=== PATIENT | male | born 1980 | race Caucasian/White ===

== ENCOUNTER 2019-03-23 05:56 | Day surgery (SDC) | payer BC ==
--- NOTE | 2019-03-23 07:07 | EDM.PDOC ---
<OfficerSylvain - Last Filed: 03/23/19 07:00> ED HPI GENERAL MEDICAL PROBLEM - General Chief Complaint: Abdominal Pain Stated Complaint: SIDE ACHE, VOMITTING, UPSET STOMACH Time Seen by Provider: 03/23/19 06:52 Source of Information: Reports: Patient, Family, RN Notes Reviewed History Limitations: Reports: No Limitations - History of Present Illness INITIAL COMMENTS - FREE TEXT/NARRATIVE: 38-year-old male presents emergency department today with complaint of abdominal pain,6 he has a known history of gallstones he had an ultrasound a couple of months ago. He is not had any problem with that until this evening. Had dinner last night about 6:00 about 8:00 started developing abdominal pain early this morning he had some nausea and vomiting the pain has persisted. Denies any fevers no shortness of breath or chest pain - Related Data Allergies Allergy/AdvReac Type Severity Reaction Status Date / Time infliximab [From Remicade] Allergy Swelling Verified 03/23/19 06:10 Home Meds: Home Meds Lisinopril 20 mg PO BID 03/23/19 [History] Ustekinumab [Stelara] 45 mg SQ ASDIRECTED 03/23/19 [History] Past Medical History HEENT History: Reports: Impaired Vision Cardiovascular History: Reports: Hypertension Musculoskeletal History: Reports: Other (See Below) Other Musculoskeletal History: psorieatic arthritis Endocrine/Metabolic History: Reports: Obesity/BMI 30+, Other (See Below) Dermatologic History: Reports: Psoriasis Social & Family History - Tobacco Use Smoking Status *Q: Never Smoker ED ROS GENERAL - Review of Systems Review Of Systems: See Below Constitutional: Denies: Fever, Chills HEENT: Reports: No Symptoms Respiratory: Reports: No Symptoms Cardiovascular: Reports: No Symptoms GI/Abdominal: Reports: Abdominal Pain, Nausea, Vomiting. Denies: Constipation, Diarrhea : Reports: No Symptoms ED EXAM, GI/ABD - Physical Exam Exam: See Below Exam Limited By: No Limitations General Appearance: Alert, Mild Distress Respiratory/Chest: No Respiratory Distress, Lungs Clear, Normal Breath Sounds, No Accessory Muscle Use, Chest Non-Tender Cardiovascular: Regular Rate, Rhythm, No Murmur GI/Abdominal Exam: Normal Bowel Sounds, Soft, No Distention, Tender (Right upper quadrant positive Lopes sign) Course - Vital Signs Last Recorded V/S: Last Vital Signs Temp 96.6 F 03/23/19 11:07 Pulse 86 03/23/19 11:07 Resp 18 03/23/19 11:07 BP 131/60 03/23/19 11:07 Pulse Ox 95 03/23/19 11:07 - Orders/Labs/Meds Orders: Active Orders 24 hr Category Date Time Status Ambulate [RC] QID Care 03/23/19 09:09 Active Dorsiflex/Plantar flex x 10 [RC] Q4HR Care 03/23/19 09:09 Active EKG Documentation Completion [RC] ASDIRECTED Care 03/23/19 08:20 Active Head of Bed Elevation [RC] ASDIRECTED Care 03/23/19 09:09 Active Intake and Output [RC] ASDIRECTED Care 03/23/19 09:09 Active Notify Provider Vital Signs [RC] ASDIRECTED Care 03/23/19 09:09 Active Peripheral IV Care [RC] . DIRECTED Care 03/23/19 06:58 Active Pneumonia Education [RC] UPON Care 03/23/19 09:09 Active RT Incentive Spirometry [RC] Q1HWA Care 03/23/19 09:09 Active Ready for Discharge [RC] PER UNIT ROUTINE Care 03/23/19 09:13 Active Turn, Cough, Deep Breathe [RC] .PRN Care 03/23/19 09:09 Active Up to Chair [RC] ASDIRECTED Care 03/23/19 09:09 Active Advance Diet Instructions [DIET] Diet 03/23/19 Lunch Active CBC WITH AUTO DIFF [HEME] Routine Lab 03/24/19 05:11 Ordered COMPREHENSIVE METABOLIC PN,CMP [CHEM] Routine Lab 03/24/19 05:11 Ordered Acetaminophen/HYDROcodone [[place] 325-5 MG] Med 03/23/19 09:09 Active 1 tab PO Q4H PRN Benzocaine/Cetylpyrd/Menthol [Cepacol Sore Throat] Med 03/23/19 09:09 Active 1 lozenge MUCMEM Q4H PRN Docusate Sodium [Colace] Med 03/23/19 09:09 Active 100 mg PO BID PRN Lactated Ringers [Ringers, Lactated] 1,000 ml Med 03/23/19 07:00 Active IV ASDIRECTED Meloxicam [Mobic] Med 03/23/19 12:00 Active 7.5 mg PO DAILY Ropivacaine [Naropin 0.5%] 60 ml Med 03/23/19 09:00 Active dexAMETHasone [Dexamethasone] 8 mg EPINEPHrine [Adrenalin] 0.4 mg Sodium Chloride 0.9% [Normal Saline] 17.6 ml NERVRT ASDIRECTED Sodium Chloride 0.9% [Saline Flush] Med 03/23/19 06:58 Active 10 ml FLUSH ASDIRECTED PRN Zolpidem [Ambien] Med 03/23/19 09:09 Active 5 mg PO BEDTIME PRN fentaNYL [Sublimaze] Med 03/23/19 09:12 Active 10 - 30 mcg IVPUSH Q1H PRN hydrOXYzine HCl [Vistaril] Med 03/23/19 09:09 Active 100 mg IM Q4H PRN hydrOXYzine HCl [Vistaril] Med 03/23/19 10:18 Active 100 mg IM Q4H PRN Abdominal Binder [OM.PC] Routine Oth 03/23/19 09:09 Ordered Convert IV to Saline Lock [OM.PC] Routine Oth 03/23/19 09:09 Ordered Peripheral IV Insertion Adult [OM.PC] Urgent Oth 03/23/19 06:58 Ordered Procedure Education [OM.PC] Routine Oth 03/23/19 09:09 Ordered Sequential Compression Device [OM.PC] Routine Oth 03/23/19 09:09 Ordered Resuscitation Status Routine Resus Stat 03/23/19 09:09 Ordered EKG 12 Lead [EK] Routine Ther 03/23/19 08:20 Ordered Medication Orders Hydrocodone Bitart/Acetaminophen ([place] 325-5 Mg) 1 tab PO Q4H PRN PRN Reason: Pain (moderate 4-6) Last Admin: 03/23/19 11:19 Dose: 1 tab Benzocaine/Menthol (Cepacol Sore Throat) 1 lozenge MUCMEM Q4H PRN PRN Reason: Sore Throat Ropivacaine 60 ml/Dexamethasone 8 mg/Epinephrine HCl 0.4 mg/ Sodium Chloride 17.6 ml 0 ml NERVRT ASDIRECTED CIPRIANO Last Admin: 03/23/19 10:04 Dose: 80 syringe Docusate Sodium (Colace) 100 mg PO BID PRN PRN Reason: Constipation Fentanyl (Sublimaze) 10 - 30 mcg IVPUSH Q1H PRN PRN Reason: Pain (severe 7-10) Hydroxyzine HCl (Vistaril) 100 mg IM Q4H PRN PRN Reason: Breakthrough Pain Last Admin: 03/23/19 10:39 Dose: 100 mg Hydroxyzine HCl (Vistaril) 100 mg IM Q4H PRN PRN Reason: Nausea Lactated Ringer's (Ringers, Lactated) 1,000 mls @ 999 mls/hr IV ASDIRECTED CIPRIANO Last Admin: 03/23/19 07:28 Dose: 999 mls/hr Meloxicam (Mobic) 7.[address] [facility] Last Admin: 03/23/19 11:20 Dose: Sodium Chloride (Saline Flush) 10 ml FLUSH ASDIRECTED PRN PRN Reason: Keep Vein Open Last Admin: 03/23/19 07:46 Dose: 10 ml Zolpidem Tartrate (Ambien) 5 mg PO BEDTIME PRN PRN Reason: Sleep Labs: Laboratory Tests 03/23/19 03/23/19 03/23/19 Range/Units 07:13 07:13 07:13 WBC 19.2 H (4.5-11.0) K/uL RBC 5.20 (4.30-5.90) M/uL Hgb 15.5 H (12.0-15.0) g/dL Hct 45.2 (40.0-54.0) % MCV 87 (80-98) fL MCH 30 (27-31) pg MCHC 34 (32-36) % Plt Count 264 (150-400) K/uL Neut % (Auto) 83 H (36-66) % Lymph % (Auto) 8 L (24-44) % Pratt % (Auto) 8 H (2-6) % Eos % (Auto) 0 L (2-4) % Baso % (Auto) 0 (0-1) % Sodium 139 L (140-148) mmol/L Potassium 4.4 (3.6-5.2) mmol/L Chloride 102 (100-108) mmol/L Carbon Dioxide 29 (21-32) mmol/L Anion Gap 12.4 (5.0-14.0) mmol/L BUN 16 (7-18) mg/dL Creatinine 1.1 (0.8-1.3) mg/dL Est Cr Clr Drug Dosing TNP Estimated GFR (MDRD) > 60 (>60) Glucose 134 H (74-106) mg/dL Lactic Acid 1.6 (0.4-2.0) mmol/L Calcium 9.4 (8.5-10.1) mg/dL Total Bilirubin 0.3 (0.2-1.0) mg/dL AST 22 (15-37) U/L ALT 51 (12-78) U/L Alkaline Phosphatase 71 (46-116) U/L Troponin I < 0.017 (0.000-0.056) ng/mL Total Protein 7.5 (6.4-8.2) g/dL Albumin 4.0 (3.4-5.0) g/dL Globulin 3.5 (2.3-3.5) g/dL Albumin/Globulin Ratio 1.1 L (1.2-2.2) Lipase 172 (73-393) U/L Urine Color Urine Appearance Urine pH (4.5-8.0) Ur Specific Theodore (1.008-1.030) Urine Protein (NEGATIVE) mg/dL Urine Glucose (UA) (NEGATIVE) mg/dL Urine Ketones (NEGATIVE) mg/dL Urine Occult Blood (NEGATIVE) Urine Nitrite (NEGAITVE) Urine Bilirubin (NEGATIVE) Urine Urobilinogen (NORMAL) mg/dL Ur Leukocyte Esterase (NEGATIVE) Urine RBC (0-5) Urine WBC (0-5) Ur Epithelial Cells Amorphous Sediment Urine Bacteria Urine Mucus 03/23/19 Range/Units 07:17 WBC (4.5-11.0) K/uL RBC (4.30-5.90) M/uL Hgb (12.0-15.0) g/dL Hct (40.0-54.0) % MCV (80-98) fL MCH (27-31) pg MCHC (32-36) % Plt Count (150-400) K/uL Neut % (Auto) (36-66) % Lymph % (Auto) (24-44) % Pratt % (Auto) (2-6) % Eos % (Auto) (2-4) % Baso % (Auto) (0-1) % Sodium (140-148) mmol/L Potassium (3.6-5.2) mmol/L Chloride (100-108) mmol/L Carbon Dioxide (21-32) mmol/L Anion Gap (5.0-14.0) mmol/L BUN (7-18) mg/dL Creatinine (0.8-1.3) mg/dL Est Cr Clr Drug Dosing Estimated GFR (MDRD) (>60) Glucose (74-106) mg/dL Lactic Acid (0.4-2.0) mmol/L Calcium (8.5-10.1) mg/dL Total Bilirubin (0.2-1.0) mg/dL AST (15-37) U/L ALT (12-78) U/L Alkaline Phosphatase (46-116) U/L Troponin I (0.000-0.056) ng/mL Total Protein (6.4-8.2) g/dL Albumin (3.4-5.0) g/dL Globulin (2.3-3.5) g/dL Albumin/Globulin Ratio (1.2-2.2) Lipase (73-393) U/L Urine Color Yellow Urine Appearance Slightly cloudy Urine pH 7.0 (4.5-8.0) Ur Specific Theodore 1.010 (1.008-1.030) Urine Protein Negative (NEGATIVE) mg/dL Urine Glucose (UA) Normal (NEGATIVE) mg/dL Urine Ketones >=160 (NEGATIVE) mg/dL Urine Occult Blood Moderate (NEGATIVE) Urine Nitrite Negative (NEGAITVE) Urine Bilirubin Negative (NEGATIVE) Urine Urobilinogen Normal (NORMAL) mg/dL Ur Leukocyte Esterase Negative (NEGATIVE) Urine RBC 5-10 H (0-5) Urine WBC Not seen (0-5) Ur Epithelial Cells Rare Amorphous Sediment Moderate Urine Bacteria Rare Urine Mucus Many Meds: Medications Generic Name Dose Route Start Last Admin Trade Name Freq PRN Reason Stop Dose Admin Hydrocodone Bitart/Acetaminophen 1 tab 03/23/19 09:09 03/23/19 11:19 [place] 325-5 Mg PO 1 tab Q4H PRN Administration Pain (moderate 4-6) Benzocaine/Menthol 1 lozenge 03/23/19 09:09 Cepacol Sore Throat MUCMEM Q4H PRN Sore Throat Ropivacaine 60 ml/ 0 ml 03/23/19 09:00 03/23/19 10:04 Dexamethasone 8 mg/ NERVRT 80 syringe Epinephrine HCl 0.4 mg/ Sodium ASDIRECTED CIPRIANO Administration Chloride 17.6 ml Docusate Sodium 100 mg 03/23/19 09:09 Colace PO BID PRN Constipation Fentanyl 10 - 30 mcg 03/23/19 09:12 Sublimaze IVPUSH Q1H PRN Pain (severe 7-10) Hydroxyzine HCl 100 mg 03/23/19 09:09 03/23/19 10:39 Vistaril IM 100 mg Q4H PRN Administration Breakthrough Pain Hydroxyzine HCl 100 mg 03/23/19 10:18 Vistaril IM Q4H PRN Nausea Lactated Ringer's 1,000 mls @ 999 mls/hr 03/23/19 07:00 03/23/19 07:28 Ringers, Lactated IV 999 mls/hr ASDIRECTED CIPRIANO Administration Meloxicam 7.5 mg 03/23/19 12:00 03/23/19 11:20 Mobic PO Not Given DAILY CIPRIANO Sodium Chloride 10 ml 03/23/19 06:58 03/23/19 07:46 Saline Flush FLUSH 10 ml ASDIRECTED PRN Administration Keep Vein Open Zolpidem Tartrate 5 mg 03/23/19 09:09 Ambien PO BEDTIME PRN Sleep Discontinued Medications Generic Name Dose Route Start Last Admin Trade Name Freq PRN Reason Stop Dose Admin Bupivacaine HCl Confirm 03/23/19 08:47 03/23/19 10:05 Marcaine 0.5% Administered 03/23/19 08:48 20 ml Dose Administration 50 ml .ROUTE .STK-MED ONE Dexamethasone Confirm 03/23/19 08:55 Dexamethasone Administered 03/23/19 08:56 Dose 4 mg .ROUTE .STK-MED ONE Fentanyl 50 mcg 03/23/19 06:59 03/23/19 07:29 Sublimaze IVPUSH 03/23/19 07:00 50 mcg ONETIME ONE Administration Fentanyl Confirm 03/23/19 08:55 Sublimaze Administered 03/23/19 08:56 Dose 250 mcg .ROUTE .STK-MED ONE Fentanyl Confirm 03/23/19 10:08 Sublimaze Administered 03/23/19 10:09 Dose 100 mcg .ROUTE .STK-MED ONE Glycopyrrolate Confirm 03/23/19 08:55 Robinul Administered 03/23/19 08:56 Dose 1 mg .ROUTE .STK-MED ONE Cefazolin Sodium/Dextrose 2 gm 50 mls @ 100 mls/hr 03/23/19 08:20 03/23/19 08 :38 / Premix IV 03/23/19 08:49 100 mls/hr ONETIME ONE Administration Metronidazole 500 mg/ Premix 100 mls @ 100 mls/hr 03/23/19 08:20 03/23/19 08: 39 IV 03/23/19 09:19 100 mls/hr ONETIME ONE Administration Lactated Ringer's Confirm 03/23/19 10:03 Ringers, Lactated Administered 03/23/19 10:04 Dose 1,000 mls @ as directed .ROUTE .STK-MED ONE Ketorolac Tromethamine Confirm 03/23/19 10:14 Toradol Administered 03/23/19 10:15 Dose 60 mg .ROUTE .STK-MED ONE Labetalol HCl Confirm 03/23/19 09:48 Normodyne Administered 03/23/19 09:49 Dose 20 mg .ROUTE .STK-MED ONE Lidocaine/Epinephrine Confirm 03/23/19 08:47 03/23/19 10:05 Xylocaine 1% With Epinephrine 1:100,000 Administered 03/23/19 08:48 20 ml Dose Administration 50 ml .ROUTE .STK-MED ONE Midazolam HCl Confirm 03/23/19 08:55 Versed 1 Mg/Ml Administered 03/23/19 08:56 Dose 2 mg .ROUTE .STK-MED ONE Neostigmine Methylsulfate Confirm 03/23/19 08:55 Neostigmine Administered 03/23/19 08:56 Dose 5 mg .ROUTE .STK-MED ONE Ondansetron HCl 4 mg 03/23/19 06:59 03/23/19 07:29 Zofran IVPUSH 03/23/19 07:00 4 mg ONETIME ONE Administration Ondansetron HCl Confirm 03/23/19 08:55 Zofran Administered 03/23/19 08:56 Dose 4 mg .ROUTE .STK-MED ONE Propofol Confirm 03/23/19 08:55 Diprivan 20 Ml Administered 03/23/19 08:56 Dose 200 mg .ROUTE .STK-MED ONE Rocuronium [place] Confirm 03/23/19 08:55 Zemuron Administered 03/23/19 08:56 Dose 50 mg .ROUTE .STK-MED ONE Scopolamine Confirm 03/23/19 10:29 Transderm-Scop Administered 03/23/19 10:30 Dose 1.5 mg .ROUTE .STK-MED ONE Succinylcholine Chloride Confirm 03/23/19 08:55 Quelicin Administered 03/23/19 08:56 Dose 200 mg .ROUTE .STK-MED ONE Departure - Departure Disposition: Admitted As Inpatient 66 Clinical Impression: Cholecystitis Cholelithiasis Qualifiers: Cholelithiasis location: gallbladder Cholecystitis presence: with cholecystitis Cholecystitis acuity: acute Biliary obstruction: without biliary obstruction Qualified Code(s): K80.00 - Calculus of gallbladder with acute cholecystitis without obstruction - Discharge Information - My Orders Last 24 Hours: My Active Orders 03/23/19 08:20 EKG Documentation Completion [RC] ASDIRECTED EKG 12 Lead [EK] Routine - Assessment/Plan Last 24 Hours: My Active Orders 03/23/19 08:20 EKG Documentation Completion [RC] ASDIRECTED EKG 12 Lead [EK] Routine <Dirk Jarrett D - Last Filed: 03/23/19 11:33> ED HPI GENERAL MEDICAL PROBLEM Right Upper Abdomen Pain Score (Numeric/FACES): 5 Course - Re-Assessments/Exams Free Text/Narrative Re-Assessment/Exam: 03/23/19 08:24 38-year-old male initially seen and evaluated by Officer, none cholelithiasis has had symptoms since last night. Care was turned over to myself pending a gallbladder ultrasound. This did show a stone in the neck of the gallbladder with borderline gallbladder wall thickness. He is still having symptoms so surgery was consulted and Dr. Treadwell has agreed to come in and see the patient and prepare for surgery. Patient was given 2 g of Ancef, 500 mg of IV metronidazole and a preoperative EKG was obtained. Departure - Departure Time of Disposition: 09:14
[2019-03-23] MEDS: Lactated Ringers 1,000 ML IV SCH (07:28)
[2019-03-23] MEDS: Ondansetron 4 MG/2 ML SDV IVPUSH ONE (07:29)
[2019-03-23] MEDS: fentaNYL 100 MCG/2 ML SDV IVPUSH ONE (07:29)
[2019-03-23] MEDS: Sodium Chloride 0.9% 10 ML Syringe FLUSH PRN (07:46)
--- NOTE | 2019-03-23 08:15 | CRLUS ---
INDICATION: Right upper quadrant pain. FINDINGS: Transabdominal imaging. Visualized pancreas is unremarkable. Liver is echogenic. Poor through transmission. Coarse appearance. No definite mass or cyst. No ductal dilatation. Mild echogenic sludge in the gallbladder. Small impacted stone at the neck. No sonographic Lopes`s sign. Pericholecystic edema. Mild wall thickening. The main portal vein is patent with hepatopetal monophasic low velocity flow. IMPRESSION: 1. Cholelithiasis with probable acute cholecystitis. Lopes`s sign confounded by recent pain medication administration. 2. Dense echogenic liver suggests steatosis. Dictated by Cody Hernandez MD @ Mar 23 2019 8:12AM Signed by Dr. Cody Hernandez @ Mar 23 2019 8:15AM
[2019-03-23] MEDS: ceFAZolin 2 GM in Premix Bag 1 BAG IV ONE (08:38)
[2019-03-23] MEDS: metroNIDAZOLE/Normal Saline 500 MG in Premix Bag 1 BAG IV ONE (08:39)
[2019-03-23] MEDS ORDERED: Propofol 200 MG/20 ML SDV ONE (08:55)
[2019-03-23] MEDS ORDERED: Dexamethasone 4 MG/ML SDV ONE (08:55)
[2019-03-23] MEDS ORDERED: Glycopyrrolate 0.2 MG/ML 5 ML MDV ONE (08:55)
[2019-03-23] MEDS ORDERED: Neostigmine Methylsulfate 1 MG/ML 5 ML Syringe ONE (08:55)
[2019-03-23] MEDS ORDERED: fentaNYL 250 MCG/5 ML SDV ONE (08:55)
[2019-03-23] MEDS ORDERED: Midazolam 1 MG/ML 2 ML SDV ONE (08:55)
[2019-03-23] MEDS ORDERED: Rocuronium 50 MG/5 ML Vial ONE (08:55)
[2019-03-23] MEDS ORDERED: Succinylcholine 200 MG/10 ML MDV ONE (08:55)
[2019-03-23] MEDS ORDERED: Ondansetron 4 MG/2 ML SDV ONE (08:55)
[2019-03-23] MEDS ORDERED: Zolpidem 5 MG Tab PO PRN (09:09)
[2019-03-23] MEDS ORDERED: Docusate Sodium 100 MG Cap PO PRN (09:09)
[2019-03-23] MEDS ORDERED: Benzocaine/Cetylpyridinium/Menthol Lozenge MUCMEM PRN (09:09)
[2019-03-23] MEDS ORDERED: fentaNYL 100 MCG/2 ML SDV IVPUSH PRN (09:12)
[2019-03-23] MEDS ORDERED: Labetalol 20 MG/4 ML Syringe ONE (09:48)
[2019-03-23] MEDS ORDERED: Lactated Ringers 1,000 ML ONE (10:03)
[2019-03-23] MEDS: Lidocaine 1% with EPINEPHrine 1:100,000 50 ML MDV ONE (10:05)
[2019-03-23] MEDS: Bupivacaine 0.5% 50 ML MDV ONE (10:05)
[2019-03-23] MEDS ORDERED: fentaNYL 100 MCG/2 ML SDV ONE (10:08)
[2019-03-23] MEDS ORDERED: Ketorolac 60 MG/2 ML SDV ONE (10:14)
[2019-03-23] MEDS ORDERED: hydrOXYzine HCl 100 MG/2 ML SDV IM PRN (10:18)
[2019-03-23] MEDS ORDERED: Scopolamine 1.5 MG Transdermal Patch ONE (10:29)
[2019-03-23] MEDS: hydrOXYzine HCl 100 MG/2 ML SDV IM PRN (10:39)
[2019-03-23] MEDS: Acetaminophen/HYDROcodone 325-5 MG Tab PO PRN (11:19)
[2019-03-23] MEDS: Meloxicam 7.5 MG Tab PO SCH (11:20)
--- NOTE | 2019-03-26 13:19 | OR ---
DATE OF PROCEDURE: 03/23/2019 SURGEON: Manjeet Treadwell MD PROCEDURE: Laparoscopic cholecystectomy. PREOPERATIVE DIAGNOSIS: Cholelithiasis, cholecystitis. POSTOPERATIVE DIAGNOSIS: Cholelithiasis, cholecystitis. RISKS: Risks, benefits, alternatives, and limitations including, but not limited to infection, bleeding, injury to abdominal structures such as bowel, bladder, and blood vessels. We also discussed cystic duct leaks, common bile duct injuries, and the possibility of open surgery, along with biloma and seroma formation. We also discussed chronic pain syndromes. Diagrams were used during this discussion. ANESTHESIA: General. PROCEDURE IN DETAIL: The patient was placed in supine position. A supraumbilical curvilinear incision was made. A Veress needle was used to enter the abdomen without abnormality, and drop test was performed without abnormality. The abdomen was subsequently insufflated. After this, this was followed by an Optiview trocar, which showed no evidence of enterotomy. An additional 10 and two 5 mm ports were entered under direct visualization. An inspection of gallbladder, which was easily identified, it was noted to be very ischemic on the distal aspect. A photo was taken of this. Using blunt dissection, the cystic duct and artery were eventually readily identified. The patient had significant amount of edema associated with his gallbladder. A "clear view" of the gallbladder was obtained with a single pulsatile structure entering the gallbladder and a single non-pulsatile structure entering the gallbladder. Cystic artery was small and was addressed with Harmonic scalpel. The cystic duct was clipped x3 and subsequently transected. The remaining one-third of the gallbladder was removed off the gallbladder bed without difficulty. This was delivered through the superior port, which was required to be slightly enlarged due to the patient's body habitus. The gallbladder fossa was reinspected for abnormal bleeding. The pressure was dropped. No bleeding was noted. The abdomen was thoroughly irrigated. Liquid was removed. No drain was placed. The entry point was inspected for injury, and none was noted. The fascia layers of the large ports were closed with 3-0 Vicryl. Skin was closed with 4-0 Vicryl. Dermabond was applied. The patient tolerated the procedure well. Manjeet Treadwell MD /[id number]
--- NOTE | 2019-03-26 13:30 | OR ---
DATE OF PROCEDURE: 03/23/2019 SURGEON: Manjeet Treadwell MD PROCEDURE: Transversus abdominis plane block. COMPLICATIONS: None. CLOCK MECHANIC: None. RISKS: Risks, benefits, alternatives, and limitations including, but not limited to infection, bleeding, and injury to the abdominal structures were explained to the patient, who wished to proceed. PROCEDURE IN DETAIL: The patient was placed in the supine position. The right transversus abdominis plane was accessed and then identified using 11 megahertz ultrasound probe. Approximately 70% of solution was injected into this transversus plane. The other side was identified in the same manner and injected with the same fashion, same technique in the same sequence using the same equipment, except different needle and syringe. The patient tolerated the procedure well. Manjeet Treadwell MD /[id number]
== END 2019-03-23 14:10 | disposition home or self-care (01) ==
LOC: JP.ED 05:56 → JP.SDS 08:33
PROVIDERS: ATTEND Surgery
DX: K80.12 Calculus of gallbladder with acute and chronic cholecystitis without obstruction (principal); L40.50 Arthropathic psoriasis, unspecified; I10 Essential (primary) hypertension; K21.9 Gastro-esophageal reflux disease without esophagitis; F17.200 Nicotine dependence, unspecified, uncomplicated; E66.9 Obesity, unspecified; Z68.41 Body mass index [BMI] 40.0-44.9, adult; Z79.899 Other long term (current) drug therapy; Z88.8 Allergy status to other drugs, medicaments and biological substances
CPT/HCPCS: 36415; 76705; 80053; 81001; 83605; 83690; 84484; 85025; 88304; 93005; 96361; 96374; 96375; 99285-25; A9270-GY; J0171; J0330; J0690; J1100; J1885; J2250; J2405; J2704; J2710; J2795; J3010; J3410; J3490; J7050; J7120

== ENCOUNTER 2025-01-04 23:12 | Emergency (ER) | payer BC, OTHER, SELFPAY ==
[2025-01-04] MEDS: Acetaminophen/HYDROcodone 325-5 MG Tab PO ONE (23:40)
== END 2025-01-04 23:51 | disposition home or self-care (01) ==
LOC: JP.ED 23:12
DX: K04.7 Periapical abscess without sinus (principal); I10 Essential (primary) hypertension; Z88.8 Allergy status to other drugs, medicaments and biological substances; Z79.899 Other long term (current) drug therapy
CPT/HCPCS: 99282; 99283; A9270